=== PATIENT | female | born 1995 | race Hispanic/Latino ===

== ENCOUNTER 2023-06-30 10:56 | Emergency (ER) | payer SELFPAY ==
[2023-06-30 11:05] VITALS: BP 122/79
--- NOTE | 2023-06-30 11:11 | ED.GENMED ---
History of Present Illness
General
Chief Complaint: Fainting/Passed Out
Time Seen by Provider: 06/30/23 11:11
Travel History
Have you had any contact with someone who has COVID-19?: No
Do you have any symptoms of coronavirus? Fever > 100 degrees, chills, cough, shortness of breath, sore throat, loss of taste or smell, muscle aches, or headache?: No
History of Present Illness
History of Present Illness:
HPI: Patient presents by ambulance from her employment after syncopal event. 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 She has had 5 other episode like
this in the past. EMS reportedly checked blood sugar was unremarkable. There was no reported seizure activity.
EXAM:
GENERAL: Well appearing in no distress
HEENT: Moist oral mucosa, no evidence of tongue bite borges
CARDIOVASCULAR: No murmurs, normal heart rate, regular rhythm, No chest wall tenderness
PULMONARY: No respiratory distress, breath sounds are clear and equal
ABDOMEN: Soft with no peritoneal signs, no tenderness
NEUROLOGIC: Excellent strength all extremities, no coordination deficits
PSYCHIATRIC: Appropriate mental status, normal insight and judgement
EXTREMITIES: Nontender, no edema, moves all extremities equally
SKIN: No rash, no lesions
TIME OF INITIAL ENCOUNTER: 11:33 AM
NUMBER AND COMPLEXITY OF PROBLEMS ADDRESSED AT THE ENCOUNTER
� Chronic conditions affecting care: Denies past medical history but states she has passed out multiple times in the past
� Acute Exacerbation and/or Progression of Chronic Illness: This is an acute but recurring problem
� Differential Diagnosis includes: Hypoglycemia, dysrhythmia, hypotension, dehydration
AMOUNT AND/OR COMPLEXITY OF DATA TO BE REVIEWED AND ANALYZED
� I performed an independent evaluation of and my interpretation is:
EKG: Sinus 80, left axis deviation, nonspecific ST abnormality
CT:
X-rays:
Laboratory Studies: Patient declined
Other:
� Review of other/old records: No old records available for review in [facility]
� Clinical information was obtained by an independent historian:
� Prescriptions/Medications Considered but not given:
� Further testing considered but not performed: I offered and considered blood work to be checked however the patient states that she does not like needles and does not want any further testing done at this time
RISK OF COMPLICATIONS AND/OR MORBIDITY OR MORTALITY OF PATIENT MANAGEMENT
� Social determinants of health affecting care: Lives at home, works as a cashier parking lot
� Discussion with other providers:
� Escalation of care including admission/observation vs risk of discharge considered: The patient's initial vital signs are relatively unremarkable. She appears well-hydrated. EKG is unremarkable. She denies any headache,
chest pain, or ongoing symptoms. This has happened several times in the past.
Phy Exam
Physical Exam
Physical Exam:
See HPI
Course
Orders/Labs/Results
Orders:
Orders
06/30/23 11:07
Electrocardiogram (*1) Urgent
Reason for Study: Syncope
EKG- Treatment ONCE
Vital Signs
Initial and Last Documented VS:
Initial Vital Signs
Temp Pulse Resp BP Pulse Ox
98.2 F 102 18 122/79 100
06/30/23 11:05 06/30/23 11:05 06/30/23 11:05 06/30/23 11:05 06/30/23 11:05
Last Documented Vital Signs
Temp Pulse Resp BP Pulse Ox
98.2 F 102 18 122/79 100
06/30/23 11:05 06/30/23 11:05 06/30/23 11:05 06/30/23 11:05 06/30/23 11:05
*Critical Care Note
Total Time (30-74mins, 75-104mins- exclusive of procedures): Not Applicable
ED Attending Note
-
Portions of this chart may have been created with voice recognition software.� Occasional wrong word or��sound alike� substitutions may have occurred due to the inherent limitations of voice recognition software.
Discharge Plan
Departure
Patient Disposition: Home (Routine Discharge)
Date of Disposition: 06/30/23
Time of Disposition: 11:34
Patient with high blood pressure during this ER visit?: Yes
Discharge Problem:
Syncope
Instructions: Syncope (Fainting) (DC)
Prescriptions:
No Action
No Current Medications
0
Stand Alone Forms: Return to Work
Activity Restrictions/Additional Instructions:
Return here if worse. Follow-up your primary care doctor.
Interventions
Interventions:
*Risk Screen - Suicide Last Done: 06/30/23 11:06
*General Assessment Last Done: 06/30/23 11:06
*Neglect/Abuse Screening Last Done: 06/30/23 11:06
ED- Fall Risk Assessment Last Done: 06/30/23 11:22
*Nursing Disposition Last Done: 06/30/23 11:57
ED- Cardiac Assessment Last Done: 06/30/23 11:22
ED- Neurological Assessment Last Done: 06/30/23 11:22
Discharge Date and Time
Discharge Date/Time: 06/30/23 11:58
Print Language: MALTESE
[2023-06-30 11:24] VITALS: BP 125/69; BP 126/79; BP 130/80; PULSE 77; PULSE 78
== END 2023-06-30 11:58 | disposition home or self-care (01) ==
LOC: EMR 10:56
PROVIDERS: EMERGENCY PHYSICIAN Emergency Medicine
DX: R55 Syncope and collapse (principal)
CPT/HCPCS: 99283; 93005